=== PATIENT | male | born 1960 | race Caucasian/White ===

== ENCOUNTER 2020-02-09 17:10 | Observation (INO) | payer OTHER ==
[2020-02-09] MEDS ORDERED: Diltiazem 25 MG/5 ML SDV IVPUSH ONE (17:38)
[2020-02-09 17:50] LABS: CHLORIDE,CL 104 mEq/L (98-106); SODIUM,NA 138 mEq/L (136-145)
--- NOTE | 2020-02-09 17:53 | EDM.PDOC ---
ED HPI GENERAL MEDICAL PROBLEM - General Chief Complaint: Chest Pain Stated Complaint: SOB, chest pain Time Seen by Provider: 02/09/20 17:13 Source of Information: Reports: Patient History Limitations: Reports: No Limitations - History of Present Illness INITIAL COMMENTS - FREE TEXT/NARRATIVE: Jonathan is a 59 year old male who presents to ER with complaints of chest pressure and mild shortness of breath. States was working in his shop and started to note pressure and felt lightheaded for a short period of time. Had brief episode of nausea. No diaphoresis. Drove to [place] and met his who brought him here to [place]. Rates his pain at a 1-2/10. Questions if related to his heartburn. Currently take Omeprazole. No known cardiac history. Admits has not had a health maintenance exam in many years. Onset: Today, Gradual Duration: Hour(s):, Constant Location: Reports: Chest Quality: Reports: Ache Severity: Mild Improves with: Reports: Rest Associated Symptoms: Reports: Chest Pain, Shortness of Breath. Denies: Cough, Diaphoresis, Fever/Chills, Headaches, Loss of Appetite, Nausea/Vomiting, Syncope, Weakness Chest Pain Score (Numeric/FACES): 3 - Related Data Allergies Allergy/AdvReac Type Severity Reaction Status Date / Time No Known Allergies Allergy Verified 02/09/20 17:32 Home Meds: Home Meds Omeprazole 20 mg PO DAILY 04/18/15 [History] Past Medical History Gastrointestinal History: Reports: GERD - Infectious Disease History Infectious Disease History: Reports: None - Past Surgical History GI Surgical History: Reports: Appendectomy, Other (See Below) Other GI Surgeries/Procedures: umbilical hernia Social & Family History - Tobacco Use Tobacco Use Status *Q: Former Tobacco User Used Tobacco, but Quit: Yes Month/Year Tobacco Last Used: 20 years - Caffeine Use Caffeine Use: Reports: Soda - Recreational Drug Use Recreational Drug Use: No ED ROS GENERAL - Review of Systems Review Of Systems: See Below Constitutional: Denies: Fever, Chills, Malaise, Weakness, Fatigue, Decreased Appetite HEENT: Denies: Ear Pain, Sinus Problem, Throat Pain, Vertigo Respiratory: Reports: Shortness of Breath. Denies: Cough Cardiovascular: Reports: Chest Pain, Lightheadedness. Denies: Edema Endocrine: Reports: Fatigue GI/Abdominal: Denies: Abdominal Pain, Constipation, Diarrhea, Nausea, Vomiting : Reports: No Symptoms Musculoskeletal: Reports: No Symptoms Skin: Reports: No Symptoms Neurological: Denies: Syncope, Weakness ED EXAM, GENERAL - Physical Exam Exam: See Below Exam Limited By: No Limitations General Appearance: Alert, WD/WN, No Apparent Distress Ears: Normal External Exam, Normal TMs Nose: Normal Inspection, Normal Mucosa, No Blood Throat/Mouth: Normal Inspection, Normal Oropharynx Head: Normocephalic Neck: Normal Inspection, Supple, Non-Tender Respiratory/Chest: No Respiratory Distress, Lungs Clear, Normal Breath Sounds Cardiovascular: Normal Peripheral Pulses, Irregularly Irregular GI/Abdominal: Normal Bowel Sounds, Soft, Non-Tender Extremities: Normal Inspection, No Pedal Edema Neurological: Alert, Oriented Skin Exam: Warm, Dry Course - Vital Signs Last Recorded V/S: Last Vital Signs Temp 98.4 F 02/09/20 17:12 Pulse 142 H 02/09/20 18:55 Resp 27 H 02/09/20 17:49 BP 134/81 02/09/20 18:55 Pulse Ox 98 02/09/20 17:49 - Orders/Labs/Meds Orders: Active Orders 24 hr Category Date Time Status Patient Status Manage Transfer [TRANSFER] Routine ADT 02/09/20 19:00 Active EKG Documentation Completion [RC] STAT Care 02/09/20 17:12 Active Chest 2V [CR] Stat Exams 02/09/20 17:32 Taken Diltiazem [Cardizem] 100 mg Med 02/09/20 18:15 Active Sodium Chloride 0.9% [Normal Saline] 100 ml IV TITRATE Resuscitation Status Routine Resus Stat 02/09/20 19:01 Ordered Medication Orders Diltiazem HCl 100 mg/ Sodium (Chloride) 100 mls @ 5 mls/hr IV TITRATE ELISE; Protocol Last Admin: 02/09/20 18:20 Dose: 5 mg/hr, 5 mls/hr Documented by: YEMI Labs: Laboratory Tests 02/09/20 02/09/20 02/09/20 Range/Units 17:32 17:32 17:32 WBC 11.5 H (5.0-10.0) 10^3/uL RBC 5.76 (4.50-6.00) 10^6/uL Hgb 17.4 (14.0-18.0) g/dL Hct 48.9 (40.0-54.0) % MCV 84.9 (82.0-94.0) fL MCH 30.2 (27.0-32.0) pg MCHC 35.6 (33.0-38.0) g/dL RDW Coeff of Fei 12.8 (11.0-15.0) % Plt Count 268 (150-400) 10^3/uL Neut % (Auto) 67.0 (35-85) % Lymph % (Auto) 25.4 (10-55) % [place] % (Auto) 6.1 (0-16) % Eos % (Auto) 1.1 (0-5) % Baso % (Auto) 0.4 (0-3) % Neut # (Auto) 7.66 H (1.80-7.00) 10^3/uL Lymph # (Auto) 2.91 (1.00-4.80) 10^3/uL [place] # (Auto) 0.70 (0.00-0.80) 10^3/uL Eos # (Auto) 0.13 (0.00-0.45) 10^3/uL Baso # (Auto) 0.05 10^3/uL Sodium 138 (136-145) mEq/L Potassium 3.6 (3.5-5.0) mEq/L Chloride 104 (98-106) mEq/L Carbon Dioxide 25 (21-32) mmol/L BUN 12 (7-18) mg/dL Creatinine 1.3 (0.7-1.3) mg/dL Est Cr Clr Drug Dosing 70.85 mL/min Estimated GFR (MDRD) 57 L (>=60) mL/min Glucose 77 (75-99) mg/dL Calcium 9.1 (8.4-10.1) mg/dL Total Bilirubin 0.8 (0.0-1.0) mg/dL AST 23 (15-37) U/L ALT 25 (12-78) U/L Alkaline Phosphatase 104 (46-116) U/L Lactate Dehydrogenase 141 (100-190) U/L Creatine Kinase 130 (35-232) U/L Troponin I < 0.017 (0.00-0.06) ng/mL Total Protein 7.6 (6.4-8.2) g/dL Albumin 3.6 (3.4-5.0) g/dL SARS CoV-2 RNA Rapid JULIANNE Negative (NEGATIVE) Meds: Medications Generic Name Dose Route Start Last Admin Trade Name Haroon PRN Reason Stop Dose Admin Diltiazem HCl 100 mg/ Sodium 100 mls @ 5 mls/hr 02/09/20 18:15 02/09/20 18:20 Chloride IV 5 mg/hr TITRATE ELISE 5 mls/hr Administration Protocol 5 MG/HR Discontinued Medications Generic Name Dose Route Start Last Admin Trade Name Haroon PRN Reason Stop Dose Admin Diltiazem HCl 20 mg 02/09/20 17:38 02/09/20 17:45 Diltiazem IVPUSH 02/09/20 17:39 20 mg ONETIME ONE Administration - Re-Assessments/Exams Free Text/Narrative Re-Assessment/Exam: 02/09/20 18:16 Cardizem 20 mg IV given without consistent response. Contacted [facility] for further direction in regards to Cardizem drip or change of meds. Suggested to initiate Cardizem drip. informed of status of patient. Will admit to observation. Departure - Departure Time of Disposition: 19:11 Disposition: Refer to Observation Condition: Fair Clinical Impression: Atrial fibrillation with RVR Forms: ED Department Discharge Sepsis Event Note (ED) - Evaluation Sepsis Screening Result: No Definite Risk - Focused Exam Vital Signs: Vital Signs Temp Pulse Resp BP Pulse Ox 02/09/20 18:55 142 H 134/81 02/09/20 18:35 138 H 126/92 H 02/09/20 18:30 144 H 133/93 H 02/09/20 18:25 130 H 128/90 02/09/20 18:20 149 H 117/88 02/09/20 18:09 137 H 02/09/20 18:02 129 H 02/09/20 17:49 145 H 27 H 124/78 98 02/09/20 17:20 166 H 154/88 H 02/09/20 17:12 98.4 F 162 H 18 193/169 H 98 - Problem List & Annotations (1) Atrial fibrillation with RVR SNOMED Code(s): 739386165653247 Code(s): I48.91 - UNSPECIFIED ATRIAL FIBRILLATION Status: Acute Priority: High Current Visit: Yes - Problem List Review Problem List Initiated/Reviewed/Updated: Yes - My Orders Last 24 Hours: My Active Orders 02/09/20 17:12 EKG Documentation Completion [RC] STAT 02/09/20 17:32 Chest 2V [CR] Stat 02/09/20 18:15 Diltiazem [Cardizem] 100 mg Sodium Chloride 0.9% [Normal Saline] 100 ml IV TITRATE 02/09/20 19:00 Patient Status Manage Transfer [TRANSFER] Routine 02/09/20 19:01 Resuscitation Status Routine - Assessment/Plan Admission H&P: Please use this note as an admission H&P Last 24 Hours: My Active Orders 02/09/20 17:12 EKG Documentation Completion [RC] STAT 02/09/20 17:32 Chest 2V [CR] Stat 02/09/20 18:15 Diltiazem [Cardizem] 100 mg Sodium Chloride 0.9% [Normal Saline] 100 ml IV TITRATE 02/09/20 19:00 Patient Status Manage Transfer [TRANSFER] Routine 02/09/20 19:01 Resuscitation Status Routine Assessment:: Atrial with RVR Plan: Admit to observation. Will continue Cardizem drip and monitor unless change in status as is stable. Blood pressure stable. Will obtain echo when able. Start Eliquis.
[2020-02-09] MEDS ORDERED: Diltiazem 100 MG in Sodium Chloride 0.9% 100 ML IV SCH (18:15)
[2020-02-09] MEDS ORDERED: Ondansetron 4 MG Tab.DIS PO PRN (19:35)
[2020-02-09] MEDS ORDERED: Sodium Chloride 0.9% 10 ML Syringe FLUSH PRN (19:35)
[2020-02-09] MEDS ORDERED: Acetaminophen 325 MG Tab PO PRN (19:35)
[2020-02-09] MEDS ORDERED: Diltiazem 120 MG Cap.CD PO ONE (20:47)
[2020-02-09] MEDS: Apixaban 5 MG Tab PO SCH (21:13)
[2020-02-09] MEDS: Nicotine 14 MG/24 Hr Patch TRDERM SCH (21:38)
[2020-02-10] MEDS: Apixaban 5 MG Tab PO SCH (07:43)
[2020-02-10] MEDS: Nicotine 14 MG/24 Hr Patch TRDERM SCH (07:43)
[2020-02-10] MEDS ORDERED: Pantoprazole 40 MG Tab.CR PO SCH (08:00)
[2020-02-10 08:01] LABS: CHLORIDE,CL 105 mEq/L (98-106); SODIUM,NA 138 mEq/L (136-145)
[2020-02-10 08:07] VITALS: BP 125/82; PULSE 67
--- NOTE | 2020-02-10 12:16 | PCM.DCSUM1 ---
Discharge Summary - Hospital Course Free Text/Narrative:: Jonathan is a 59 year old male who presented to the ER with complaints of mild chest pressure, shortness of breath and lightheadedness. Was working out in the shop, initially thought may be related to his heartburn issues but did not subside so presented to the ER. Had brief episode of nausea, no vomiting. No radiation of chest discomfort. No diaphoresis. Essentially negative PMH except for GERD. Was found to be in a fib with RVR in rate of 160s. Labs all essentially normal in ER. Covid negative. Was given Cardizem 20 mg IV push with minimal change in rate. Started on Cardizem drip and admitted to observation. Diagnosis: Stroke: No Modified Bjorn Scale: No Symptoms at All Modified [place] Scale Score: 0 - Discharge Data Discharge Date: 02/10/20 Discharge Disposition: Home, Self-Care 01 Condition: Good - Referral to Home Health Primary Care Physician: PCP None - Discharge Diagnosis/Problem(s) (1) Atrial fibrillation with RVR SNOMED Code(s): 733191621102445 ICD Code: I48.91 - UNSPECIFIED ATRIAL FIBRILLATION Status: Acute Priority: High - Patient Summary/Data Complications: none Hospital Course: Patient doing well this am. Was given approximately 2 hours of the Cardizem drip and converted to NSR with the rate of 80. Was started on Cardizem CD and weaned off the drip. Maintained NSR through the night and this am. Is feeling good. Labs are all normal, stable this am. Does admit that he uses multiple stimulants through the day with 6-8 cans of Coke and 1 1/2 cans of [place] every day. No other known cardiac history. Has not had a health maintenance exam for over 4+ years. Was given Eliquis while here but will switch to oral daily aspirin and continue the Cardizem until recheck. Obtain echocardiogram this week. Await SARS antibody to determine any possible cause of a fib. Will follow up with provider of choice in 10 days or so. - Patient Instructions Diet: Usual Diet as Tolerated Activity: As Tolerated Other/Special Instructions: Echocardiogram this coming week- please call [phone] to schedule appointment - Discharge Plan *PRESCRIPTION DRUG MONITORING PROGRAM REVIEWED*: No *COPY OF PRESCRIPTION DRUG MONITORING REPORT IN PATIENT YIMI: No Prescriptions/Med Rec: Aspirin [Aspirin EC] 81 mg PO DAILY #30 tablet. Diltiazem [Cardizem CD] 120 mg PO DAILY #30 cap.er Home Medications: Home Meds Omeprazole 20 mg PO DAILY 04/18/15 [History] Aspirin [Aspirin EC] 81 mg PO DAILY #30 tablet. 02/10/20 [Rx] Diltiazem [Cardizem CD] 120 mg PO DAILY #30 cap.er 02/10/20 [Rx] Forms: ED Department Discharge Referrals: Maury Rodas MD [ED Physician] - (Follow up with Dr. Rodas in 10 days) - Discharge Summary/Plan Comment DC Time >30 min.: No - General Info Date of Service: 02/10/20 Admission Dx/Problem (Free Text: Atrial Fib with RVR Functional Status: Reports: Pain Controlled, Tolerating Diet, Ambulating - Review of Systems General: Denies: Fever, Weakness, Fatigue, Malaise, Chills HEENT: Reports: No Symptoms Pulmonary: Denies: Shortness of Breath, Cough Cardiovascular: Denies: Chest Pain, Edema, Lightheadedness Gastrointestinal: Denies: Abdominal Pain, Nausea, Vomiting Genitourinary: Reports: No Symptoms Musculoskeletal: Reports: No Symptoms Skin: Reports: No Symptoms Neurological: Reports: No Symptoms - Patient Data Vitals - Most Recent: Last Vital Signs Temp 97.4 F 02/10/20 08:00 Pulse 67 02/10/20 08:00 Resp 18 02/10/20 08:00 BP 125/82 02/10/20 08:00 Pulse Ox 96 02/10/20 08:00 Weight - Most Recent: 281 lb 1.6 oz I&O - Last 24 hours: Intake & Output 02/09/20 02/10/20 02/10/20 22:59 06:59 14:59 Intake Total 36 Balance 36 Lab Results - Last 24 hrs: Laboratory Results - last 24 hr 02/09/20 02/09/20 02/09/20 Range/Units 17:32 17:32 17:32 WBC 11.5 H (5.0-10.0) 10^3/uL RBC 5.76 (4.50-6.00) 10^6/uL Hgb 17.4 (14.0-18.0) g/dL Hct 48.9 (40.0-54.0) % MCV 84.9 (82.0-94.0) fL MCH 30.2 (27.0-32.0) pg MCHC 35.6 (33.0-38.0) g/dL RDW Coeff of Fei 12.8 (11.0-15.0) % Plt Count 268 (150-400) 10^3/uL Neut % (Auto) 67.0 (35-85) % Lymph % (Auto) 25.4 (10-55) % [place] % (Auto) 6.1 (0-16) % Eos % (Auto) 1.1 (0-5) % Baso % (Auto) 0.4 (0-3) % Neut # (Auto) 7.66 H (1.80-7.00) 10^3/uL Lymph # (Auto) 2.91 (1.00-4.80) 10^3/uL Weber # (Auto) 0.70 (0.00-0.80) 10^3/uL Eos # (Auto) 0.13 (0.00-0.45) 10^3/uL Baso # (Auto) 0.05 10^3/uL Sodium 138 (136-145) mEq/L Potassium 3.6 (3.5-5.0) mEq/L Chloride 104 (98-106) mEq/L Carbon Dioxide 25 (21-32) mmol/L BUN 12 (7-18) mg/dL Creatinine 1.3 (0.7-1.3) mg/dL Est Cr Clr Drug Dosing 70.85 mL/min Estimated GFR (MDRD) 57 L (>=60) mL/min Glucose 77 (75-99) mg/dL Calcium 9.1 (8.4-10.1) mg/dL Total Bilirubin 0.8 (0.0-1.0) mg/dL AST 23 (15-37) U/L ALT 25 (12-78) U/L Alkaline Phosphatase 104 (46-116) U/L Lactate Dehydrogenase 141 (100-190) U/L Creatine Kinase 130 (35-232) U/L Troponin I < 0.017 (0.00-0.06) ng/mL Total Protein 7.6 (6.4-8.2) g/dL Albumin 3.6 (3.4-5.0) g/dL SARS CoV-2 RNA Rapid JULIANNE Negative (NEGATIVE) 02/10/20 02/10/20 Range/Units 05:11 05:11 WBC 7.9 (5.0-10.0) 10^3/uL RBC 5.39 (4.50-6.00) 10^6/uL Hgb 16.2 (14.0-18.0) g/dL Hct 46.4 (40.0-54.0) % MCV 86.1 (82.0-94.0) fL MCH 30.1 (27.0-32.0) pg MCHC 34.9 (33.0-38.0) g/dL RDW Coeff of Fei 12.9 (11.0-15.0) % Plt Count 218 (150-400) 10^3/uL Neut % (Auto) 62.4 (35-85) % Lymph % (Auto) 27.3 (10-55) % [place] % (Auto) 7.2 (0-16) % Eos % (Auto) 2.3 (0-5) % Baso % (Auto) 0.8 (0-3) % Neut # (Auto) 4.91 (1.80-7.00) 10^3/uL Lymph # (Auto) 2.15 (1.00-4.80) 10^3/uL Weber # (Auto) 0.57 (0.00-0.80) 10^3/uL Eos # (Auto) 0.18 (0.00-0.45) 10^3/uL Baso # (Auto) 0.06 10^3/uL Sodium 138 (136-145) mEq/L Potassium 3.9 (3.5-5.0) mEq/L Chloride 105 (98-106) mEq/L Carbon Dioxide 24 (21-32) mmol/L BUN 13 (7-18) mg/dL Creatinine 1.2 (0.7-1.3) mg/dL Est Cr Clr Drug Dosing 76.76 mL/min Estimated GFR (MDRD) > 60 (>=60) mL/min Glucose 101 H D (75-99) mg/dL Calcium 8.8 (8.4-10.1) mg/dL Total Bilirubin (0.0-1.0) mg/dL AST (15-37) U/L ALT (12-78) U/L Alkaline Phosphatase (46-116) U/L Lactate Dehydrogenase (100-190) U/L Creatine Kinase (35-232) U/L Troponin I < 0.017 (0.00-0.06) ng/mL Total Protein (6.4-8.2) g/dL Albumin (3.4-5.0) g/dL SARS CoV-2 RNA Rapid JULIANNE (NEGATIVE) Med Orders - Current: Current Medications Discontinued Medications Acetaminophen (Tylenol) 650 mg PO Q4H PRN PRN Reason: Pain (Mild 1-3)/fever Last Admin: 02/09/20 22:59 Dose: 650 mg Documented by: Apixaban (Eliquis) 5 mg PO BID [facility] Last Admin: 02/10/20 07:43 Dose: 5 mg Documented by: Diltiazem HCl (Diltiazem) 20 mg IVPUSH ONETIME ONE Stop: 02/09/20 17:39 Last Admin: 02/09/20 17:45 Dose: 20 mg Documented by: Diltiazem HCl (Cardizem Cd) 120 mg PO ONETIME ONE Stop: 02/09/20 20:48 Last Admin: 02/09/20 21:13 Dose: 120 mg Documented by: Diltiazem HCl 100 mg/ Sodium (Chloride) 100 mls @ 5 mls/hr IV TITRATE [facility]; Protocol Last Titration: 02/09/20 22:45 Dose: 2.5 mg/hr, 2.5 mls/hr Documented by: Nicotine (Habitrol) 14 mg TRDERM DAILY [facility] Last Admin: 02/10/20 07:43 Dose: 14 mg Documented by: Ondansetron HCl (Zofran Odt) 4 mg PO Q4H PRN PRN Reason: nausea, able to take PO Pantoprazole Sodium (Protonix) 40 mg PO DAILY [facility] Last Admin: 02/10/20 07:43 Dose: 40 mg Documented by: Sodium Chloride (Saline Flush) 10 ml FLUSH ASDIRECTED PRN PRN Reason: Keep Vein Open - Exam Quality Assessment: Reports: Supplemental Oxygen General: Reports: Alert, Oriented HEENT: Reports: Mucous Membr. Moist/[place] Neck: Reports: Supple Lungs: Reports: Clear to Auscultation, Normal Respiratory Effort Cardiovascular: Reports: Regular Rate, Regular Rhythm GI/Abdominal Exam: Normal Bowel Sounds, Soft, Non-Tender Extremities: Normal Inspection, No Pedal Edema Skin: Reports: Warm, Dry Neurological: Reports: No New Focal Deficit
== END 2020-02-10 10:50 | disposition home or self-care (01) ==
LOC: CC.ED 17:10 → CC.MS 19:01 → UNDOADMOB 19:10 → CC.ED 19:10 → CC.MS 19:10 → UNDODISOB 02-10 10:50
PROVIDERS: ADMIT Physician Assistant Medical; ATTEND Physician Assistant Medical
DX: I48.91 Unspecified atrial fibrillation (principal); Z79.899 Other long term (current) drug therapy; Z90.49 Acquired absence of other specified parts of digestive tract; Z87.891 Personal history of nicotine dependence; Z20.822 Contact with and (suspected) exposure to COVID-19
CPT/HCPCS: 36415; 71046; 80048; 80053; 82550; 83615; 84484; 85025; 86769; 93005; 96365; 96366; 96376; 99285-25; A9270-GY; G0378; J3490; J7050; U0002

== ENCOUNTER → 2022-10-30 | Day surgery (SDC) | payer OTHER ==
[~2022-10-30] MED LIST: Flumazenil 0.1 MG/ML 10 ML MDV ONE; Ketamine 200 MG/20 ML MDV ONE; Lactated Ringers 1,000 ML IV SCH; Midazolam 1 MG/ML 2 ML SDV ONE; Propofol 200 MG/20 ML SDV ONE; fentaNYL 50 MCG/ML SDV ONE
[2022-10-30 12:43] VITALS: BP 120/81; PULSE 54
== END ==
LOC: CC.SDS 08:16
PROVIDERS: ATTEND Family Medicine
DX: Z12.11 Encounter for screening for malignant neoplasm of colon (principal); D12.3 Benign neoplasm of transverse colon; N40.0 Benign prostatic hyperplasia without lower urinary tract symptoms; I48.0 Paroxysmal atrial fibrillation; K21.9 Gastro-esophageal reflux disease without esophagitis; R53.83 Other fatigue; Z86.010 Personal history of colon polyps; Z87.898 Personal history of other specified conditions; Z90.49 Acquired absence of other specified parts of digestive tract; Z98.890 Other specified postprocedural states; Z87.891 Personal history of nicotine dependence; Z79.82 Long term (current) use of aspirin; Z79.899 Other long term (current) drug therapy
CPT/HCPCS: 00811; J2250; J2704; J3010; J3490; J7120